=== PATIENT | male | born 2000 | race Caucasian/White ===

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

== ENCOUNTER 2023-03-08 13:51 | Emergency (ER) | payer OTHER, SELFPAY | END 2023-03-08 17:00 | disposition home or self-care (01) | LOC: MADERS 13:51 | DX: K92.1 Melena (principal); E66.9 Obesity, unspecified | CPT/HCPCS: 99284 ==

== ENCOUNTER 2023-03-11 21:19 | Emergency (ER) | payer SELFPAY ==
[2023-03-11] MEDS ORDERED: Lidocaine 1% PF 5 ML VIAL ONE (21:36)
== END 2023-03-11 21:50 | disposition home or self-care (01) ==
LOC: MADERS 21:19
DX: S71.112A Laceration without foreign body, left thigh, initial encounter (principal); E66.9 Obesity, unspecified
CPT/HCPCS: 12001

== ENCOUNTER 2023-03-24 08:29 | Emergency (ER) | payer SELFPAY | END 2023-03-24 09:16 | disposition home or self-care (01) | LOC: MADERS 08:29 | DX: T81.33XA Disruption of traumatic injury wound repair, initial encounter (principal); E66.9 Obesity, unspecified | CPT/HCPCS: 99282 ==